=== PATIENT | male | born 1960 | race Caucasian/White ===

== ENCOUNTER → 2016-06-28 | Outpatient (CLI) | payer MEDICAID ==
[~2016-06-28] MED LIST: COLACE100 MG PO; FLEXERIL-DPS10 MG PO; LORTAB 5-325 M1 EACH PO; MILK OF MAGNESI10 ML PO; ONDANSETRON PO; PAMELOR DPS10 MG PO; SENOKOT-S TABL1 EACH PO; SULFAMETH/TRIMETH PO; TYLENOL325 MG PO; VIIBRYD40 MG PO; ZOFRAN PO
== END | disposition home or self-care (01) ==
DX: M54.12 Radiculopathy, cervical region (principal); M48.02 Spinal stenosis, cervical region; G95.9 Disease of spinal cord, unspecified; M25.78 Osteophyte, vertebrae; Z98.1 Arthrodesis status